=== PATIENT | male | born 1980 | race Caucasian/White ===

== ENCOUNTER → 2020-02-14 | Outpatient (CLI) | payer OTHER ==
[~2020-02-14] MED LIST: ASPIRIN 32325 MG/TAB PO; TYLENOL 325MG325 MG PO
[2020-02-14 12:48] VITALS: BP 119/78; PULSE 73; TEMP 98.1
== END ==
LOC: COL.ER 12:20
DX: Z48.02 Encounter for removal of sutures (principal)